=== PATIENT | female | born 1940 | race Caucasian/White ===

== ENCOUNTER → 2016-12-21 | Outpatient (CLI) | payer MEDICARE, BC ==
--- NOTE | 2016-12-21 15:31 | Diagnostic Imaging Report ---
Indication: Cough Comparison: None 2 views of the chest obtained. There are old fractures involving several of the ribs on the left. Cardiothymic silhouette is normal. There is biapical pleural thickening nonspecific. The lungs are clear. Impression: No acute disease
== END | disposition home or self-care (01) ==
LOC: RAD 12:40
DX: R05 Cough (principal); I10 Essential (primary) hypertension
CPT/HCPCS: 71020